=== PATIENT | female | born 1965 | race African-American/Black ===

== ENCOUNTER 2017-01-04 16:55 | Emergency (ER) | payer OTHER ==
[~2017-01-04] VITALS: Ht 160 cm; Wt 96.0 kg
[~2017-01-04 16:55] MED LIST: AMIT25TA9 PO; AMLO5TAB4 PO; ATEN50TA PO; ATOR-2 PO; BACL-141 PO; CHLO25TA27 PO; CHOL100026 PO; CYCL5TAB PO; DIPH25CA83 PO; GABA-531 PO; GLIP5TAB12 PO; LISI10TA5 PO; LORA10TA7 PO; MELO-58 PO; METF10002 PO; TRAM50TA3 PO
[2017-01-04] MEDS ORDERED: MORPHINE SULFATE 10 MG/ML CPJ IM ONE (19:00)
[2017-01-04] MEDS ORDERED: ONDANSETRON 4MG ODT PO ONE (19:00)
[2017-01-04 21:23] VITALS: BP 152/88
== END 2017-01-04 21:29 | disposition home or self-care (01) ==
LOC: ER 17:13
DX: S16.1XXA Strain of muscle, fascia and tendon at neck level, initial encounter (principal); E11.9 Type 2 diabetes mellitus without complications; R51 Headache; I10 Essential (primary) hypertension; F17.210 Nicotine dependence, cigarettes, uncomplicated; W01.0XXA Fall on same level from slipping, tripping and stumbling without subsequent striking against object, initial encounter; Y93.89 Activity, other specified; Y92.488 Other paved roadways as the place of occurrence of the external cause
CPT/HCPCS: 70450; 72125; 73030; 81025; 96372; 99284; J2270; Q0162

== ENCOUNTER 2017-03-21 12:33 | Emergency (ER) | payer OTHER ==
[~2017-03-21] VITALS: Ht 160 cm; Wt 93.0 kg
[~2017-03-21 12:33] MED LIST changes: +IOHEXOL-300 100 ML BOTTLE ONE; +SODIUM CHLORIDE 0.9% 10ML VIAL ONE
[2017-03-21] MEDS ORDERED: KETOROLAC 60MG/2ML VIAL IM STA (17:46)
[2017-03-21 18:30] LABS: BASOPHILS % 0.6 % (0.0-2.0); HEMATOCRIT. 41.3 % (36.0-48.0); HEMOGLOBIN. 14.2 g/dL (12.0-16.0); LYMPHOCYTES % 34.9 % (20.0-50.0); MEAN CORPUSCULAR HEMOGLOBIN 34.1 pg (28.0-32.0); MEAN CORPUSCULAR VOLUME 99.4 fL (81.0-99.0); MEAN PLATELET VOLUME 7.7 fl (7.4-10.4); MONOCYTES % 7.1 % (2.0-8.0); NEUTROPHILS % 55.4 % (40.0-76.0); PLATELET 242 x1000/uL (130-400); RED BLOOD CELL COUNT 4.16 mill/uL (4.2-5.4); RED CELL DISTRIBUTION WIDTH 13.4 % (11.6-14.6)
[2017-03-21 18:33] LABS: CHLORIDE 100 mEq/L (98-107); INR 0.9; PROTHROMBIN TIME 9.9 sec (9.4-11.6)
[2017-03-21 18:40] LABS: CARBON DIOXIDE 28 mEq/L (21-32)
[2017-03-21 18:42] LABS: CLARITY URINE CLEAR (CLEAR); COLOR URINE YELLOW (YELLOW); GLUCOSE URINE 3+ (NEGATIVE); KETONES URINE TRACE (NEGATIVE); LEUKOCYTE ESTERASE URINE NEGATIVE (NEGATIVE); NITRITE URINE NEGATIVE (NEGATIVE); OCCULT BLOOD URINE NEGATIVE (NEGATIVE); PROTEIN URINE NEGATIVE (NEGATIVE); SPECIFIC GRAVITY URINE 1.033 (1.005-1.030); UROBILINOGEN URINE 0.2 E.U./dL (0.2-1.0)
[2017-03-21] MEDS ORDERED: METFORMIN HCL 500MG TABLET PO ONE (19:05)
[2017-03-21 21:36] VITALS: BP 138/90
== END 2017-03-21 21:38 | disposition home or self-care (01) ==
LOC: ER 17:10
DX: R10.9 Unspecified abdominal pain (principal); I10 Essential (primary) hypertension; E11.9 Type 2 diabetes mellitus without complications; K76.0 Fatty (change of) liver, not elsewhere classified
CPT/HCPCS: 36415; 74177; 80053; 81001; 81025; 83690; 85025; 85610; 96372; 99285; A4216; J1885; Q9967; Z7610

== ENCOUNTER 2017-08-31 11:08 | Emergency (ER) | payer MEDICAID, OTHER ==
[~2017-08-31] VITALS: Ht 160 cm; Wt 93.0 kg
[~2017-08-31 11:08] MED LIST changes: -CHOL100026 PO; +CHOL100044 PO; -IOHEXOL-300 100 ML BOTTLE ONE; +MELO-106 PO; -MELO-58 PO; -SODIUM CHLORIDE 0.9% 10ML VIAL ONE
[2017-08-31] MEDS ORDERED: SODIUM CHLORIDE 0.9% 1000ML BAG (SEPSIS BOLUS) IV ONE (13:30)
[2017-08-31] MEDS ORDERED: INSULIN REGULAR (HUMULIN R) UD 100 UNITS/ML SYR IV ONE (13:30)
[2017-08-31 14:06] LABS: BASOPHILS % 0.5 % (0.0-2.0); EOSINOPHILS % 1.6 % (0.0-5.0); HEMATOCRIT. 44.1 % (36.0-48.0); HEMOGLOBIN. 14.8 g/dL (12.0-16.0); LYMPHOCYTES % 26.7 % (20.0-50.0); MEAN CORPUSCULAR HEMOGLOBIN 33.3 pg (28.0-32.0); MEAN CORPUSCULAR VOLUME 99.5 fL (81.0-99.0); MONOCYTES % 7.6 % (2.0-8.0); NEUTROPHILS % 63.6 % (40.0-76.0); PLATELET 232 x1000/uL (130-400); RED BLOOD CELL COUNT 4.43 mill/uL (4.2-5.4); RED CELL DISTRIBUTION WIDTH 13.6 % (11.6-14.6)
[2017-08-31 14:18] LABS: CHLORIDE 101 mEq/L (98-107)
[2017-08-31 14:28] LABS: BETA HYDROXYBUTYRATE 0.2 mMol/L (0.0-0.3); CARBON DIOXIDE 27 mEq/L (21-32)
[2017-08-31] MEDS: INSULIN REGULAR (HUMULIN R) 300UNITS/3ML IV NR ×2 (14:57→16:07)
[2017-08-31] MEDS ORDERED: METOCLOPRAMIDE HCL 10MG/2ML VIAL IV ONE (15:45)
[2017-08-31] MEDS ORDERED: KETOROLAC 30MG/ML VIAL IV ONE (15:45)
[2017-08-31] MEDS ORDERED: ONDANSETRON HCL 4MG/2ML VIAL IV ONE (16:00)
[2017-08-31 16:09] VITALS: BP 142/83
== END 2017-08-31 16:14 | disposition home or self-care (01) ==
LOC: ER 11:08
DX: R51 Headache (principal); F17.200 Nicotine dependence, unspecified, uncomplicated; E11.9 Type 2 diabetes mellitus without complications; I10 Essential (primary) hypertension; Z79.84 Long term (current) use of oral hypoglycemic drugs; Z90.49 Acquired absence of other specified parts of digestive tract
CPT/HCPCS: 36415; 71045; 80053; 82010; 82962; 85025; 96361; 96374; 96375; 96376; 99285; J1815; J1885; J2405; J7030

== ENCOUNTER 2019-07-02 13:27 | Emergency (ER) | payer MEDICAID, OTHER ==
[~2019-07-02] VITALS: Ht 160 cm; Wt 91.0 kg
[~2019-07-02 13:27] MED LIST changes: +METF-416 PO; -METF10002 PO
[2019-07-02] MEDS ORDERED: ONDANSETRON HCL 4MG/2ML INJ IV STA (17:49)
[2019-07-02] MEDS ORDERED: MORPHINE SULFATE 4 MG/ML CPJ (NOT FOR IM USE) IV STA (17:49)
[2019-07-02] MEDS ORDERED: ASPIRIN 81MG TABLET PO ONE (18:00)
[2019-07-02 18:20] LABS: BASOPHILS % 0.7 % (0.0-2.0); EOSINOPHILS % 2.2 % (0.0-5.0); HEMATOCRIT. 39.1 % (36.0-48.0); HEMOGLOBIN. 13.7 g/dL (12.0-16.0); LYMPHOCYTES % 20.2 % (20.0-50.0); MEAN CORPUSCULAR HEMOGLOBIN 35.2 pg (28.0-32.0); MEAN CORPUSCULAR VOLUME 100.3 fL (81.0-99.0); MEAN PLATELET VOLUME 7.7 fl (7.4-10.4); MONOCYTES % 8.9 % (2.0-8.0); PLATELET 247 x1000/uL (130-400)
[2019-07-02 18:26] LABS: CHLORIDE 105 mEq/L (98-107)
[2019-07-02 18:27] LABS: INR 0.9; PARTIAL THROMBOPLASTIN TIME 25.2 sec (23.4-31.0); PROTHROMBIN TIME 9.7 sec (9.6-11.0)
[2019-07-02 18:33] LABS: ETHANOL BLOOD < 10 mg/dL
[2019-07-02] MEDS ORDERED: MORPHINE SULFATE 4 MG/ML CPJ (NOT FOR IM USE) IV ONE (19:15)
[2019-07-02] MEDS ORDERED: FAMOTIDINE 20MG/2ML VIAL IV ONE (19:15)
[2019-07-02] MEDS ORDERED: ONDANSETRON HCL 4MG/2ML INJ IV ONE (19:15)
[2019-07-02] MEDS ORDERED: HYDRALAZINE 20MG/ML VIAL IV ONE (19:15)
[2019-07-03] MEDS ORDERED: ONDANSETRON HCL 4MG/2ML INJ IV ONE (00:15)
[2019-07-03] MEDS ORDERED: MORPHINE SULFATE 4 MG/ML CPJ (NOT FOR IM USE) IV ONE (00:15)
[2019-07-03 00:26] VITALS: BP 165/84
== END 2019-07-03 01:00 | disposition home or self-care (01) ==
LOC: ER 13:27 → ENRESERV 20:43 → CANRESERV 20:43 → CANBEDREQ 23:23 → ER 07-03 01:00
DX: R07.89 Other chest pain (principal); R11.0 Nausea; I10 Essential (primary) hypertension; I49.9 Cardiac arrhythmia, unspecified; Z90.49 Acquired absence of other specified parts of digestive tract; Z79.899 Other long term (current) drug therapy
CPT/HCPCS: 36415; 71045; 80053; 80320; 83690; 83880; 84484; 85025; 85610; 85730; 96374; 96375; 96376; 99284; J0360; J2270; J2405; J3490; Z7610; G0480

== ENCOUNTER 2022-08-13 12:34 | Emergency (ER) | payer OTHER ==
[~2022-08-13] VITALS: Ht 160 cm; Wt 86.0 kg
[~2022-08-13 12:34] MED LIST changes: -GABA-531 PO; +GABA-532 PO; +LISI10TA26 PO; -LISI10TA5 PO
[2022-08-13 15:52] LABS: BASOPHILS % 0.6 % (0.0-2.0); HEMATOCRIT. 42.5 % (36.0-48.0); HEMOGLOBIN. 14.6 g/dL (12.0-16.0); LYMPHOCYTES % 25.6 % (20.0-50.0); MEAN CORPUSCULAR HEMOGLOBIN 35.2 pg (28.0-32.0); MEAN CORPUSCULAR VOLUME 102.2 fL (81.0-99.0); MEAN PLATELET VOLUME 8.1 fl (7.4-10.4); MONOCYTES % 5.5 % (2.0-8.0); NEUTROPHILS % 67.3 % (40.0-76.0); PLATELET 213 x1000/uL (130-400); RED BLOOD CELL COUNT 4.16 mill/uL (4.2-5.4)
[2022-08-13 16:00] LABS: CHLORIDE 102 mEq/L (98-107)
[2022-08-13] MEDS ORDERED: SODIUM CHLORIDE 0.9% 1,000 ML IV ONE (16:45)
[2022-08-13 17:19] VITALS: BP 157/76
== END 2022-08-13 18:34 | disposition short-term general hospital (02) ==
LOC: ER 12:34
DX: R07.89 Other chest pain (principal); I10 Essential (primary) hypertension; Z20.822 Contact with and (suspected) exposure to COVID-19; Z79.899 Other long term (current) drug therapy; Z90.49 Acquired absence of other specified parts of digestive tract
CPT/HCPCS: 36415; 71045; 80053; 82010; 83690; 83880; 84484; 85025; 87426; 93005; 99285; C9803; J7030